=== PATIENT | male | born 1985 | race Asian ===

== ENCOUNTER 2020-06-11 09:46 | Emergency (ER) | payer MEDICAID ==
[~2020-06-11] VITALS: Ht 167.6 cm; Wt 77.1 kg
[2020-06-11 09:48] VITALS: BP 151/101
== END 2020-06-11 10:30 | disposition home or self-care (01) ==
LOC: ER 09:46
DX: S93.401A Sprain of unspecified ligament of right ankle, initial encounter (principal); X50.1XXA Overexertion from prolonged static or awkward postures, initial encounter; Y93.89 Activity, other specified; Y92.89 Other specified places as the place of occurrence of the external cause; Y99.8 Other external cause status
CPT/HCPCS: 73610